=== PATIENT | male | born 1980 | race Hispanic/Latino ===

== ENCOUNTER 2022-01-02 19:31 | Emergency (ER) | payer OTHER ==
[~2022-01-02] VITALS: Ht 160 cm; Wt 71.2 kg
[2022-01-02] MEDS ORDERED: PROMETHAZINE HCL 25 MG TABLET PO SCH (20:30)
[2022-01-02] MEDS ORDERED: KETOROLAC 60 MG VIAL (30MG/ML) IM ONE (20:30)
[2022-01-02] MEDS ORDERED: METOCLOPRAMIDE 10 MG TABLET PO ONE (20:30)
[2022-01-02 21:50] VITALS: BP 121/75
[2022-01-02] MEDS ORDERED: FAMO-136 PO (21:50)
[2022-01-02] MEDS ORDERED: KETO10 PO (21:50)
[2022-01-02] MEDS ORDERED: PROM25TA7 PO (21:50)
== END 2022-01-02 22:21 | disposition home or self-care (01) ==
LOC: EDH 19:31
DX: R51.9 Headache, unspecified (principal); F17.200 Nicotine dependence, unspecified, uncomplicated; Z79.1 Long term (current) use of non-steroidal anti-inflammatories (NSAID)
CPT/HCPCS: 99284; 70450; 96372; J1885; Q0169